=== PATIENT | male | born 1965 | race Caucasian/White ===

== ENCOUNTER 2017-09-17 22:41 | Emergency (ER) | payer MEDICAID ==
[2017-09-17 23:58] LABS: BASOPHILS 0.1 % (0-2); EOSINOPHILS 2.3 % (0-7); HEMATOCRIT 48.5 % (42.0-54.0); HEMOGLOBIN 16.5 g/dL (13.5-17.5); IMMATURE GRANULOCYTES 0.1 % (0-5); LYMPHOCYTES 12.9 % (15-50); MCH 31.8 pg (26.0-34.0); MCV 93.4 fL (80.0-100.0); MEAN PLATELET VOLUME 10.1 fL (7.4-10.4); MONOCYTES 10.3 % (2-11); NEUTROPHILS 74.3 % (40-80); PLATELET COUNT 207 10x3/uL (130-400); RBC 5.19 10x6/uL (4.20-6.10); WBC 9.3 10x3/uL (4.8-10.8)
[2017-09-18 00:02] LABS: ALBUMIN 3.3 g/dL (3.4-5.0); ANION GAP 9.9 mmol/L (8-16); BILIRUBIN - TOTAL 0.94 mg/dL (0.2-1.3); CALCIUM 8.5 mg/dL (8.5-10.1); CARBON DIOXIDE 28.8 mmol/L (21.0-32.0); CREATININE - SERUM 1.1 mg/dL (0.6-1.3); POTASSIUM - SERUM 3.7 mmol/L (3.5-5.1); PROTEIN - SERUM 7.1 g/dL (6.4-8.2)
[2017-09-18 00:08] LABS: APPEARANCE CLEAR (CLEAR); BILIRUBIN NEGATIVE (NEGATIVE); COLOR YELLOW (YELLOW); GLUCOSE NEGATIVE (NEGATIVE); KETONE NEGATIVE (NEGATIVE); NITRITE NEGATIVE (NEGATIVE); PROTEIN NEGATIVE (NEGATIVE); SPECIFIC GRAVITY 1.015 (1.005-1.020)
== END 2017-09-18 02:29 | disposition home or self-care (01) ==
LOC: D.ER 22:41
PROVIDERS: Emergency Medicine
DX: I82.402 Acute embolism and thrombosis of unspecified deep veins of left lower extremity (principal); I50.9 Heart failure, unspecified; I10 Essential (primary) hypertension; F17.200 Nicotine dependence, unspecified, uncomplicated; R00.0 Tachycardia, unspecified; I45.10 Unspecified right bundle-branch block

== ENCOUNTER 2021-05-23 20:14 | Emergency (ER) | payer MEDICAID ==
[~2021-05-23] VITALS: Ht 180.3 cm; Wt 108.9 kg
[2021-05-23 20:17] VITALS: BP 124/78; Ht 180.3 cm; Wt 108.9 kg
[2021-05-25 23:05] VITALS: Ht 180.3 cm; Wt 108.9 kg
== END 2021-05-23 20:50 | disposition left against medical advice (07) ==
LOC: D.ER 20:14
DX: R10.9 Unspecified abdominal pain (principal)